=== PATIENT | female | born 1955 | race Caucasian/White ===

== ENCOUNTER → 2016-04-28 | Outpatient (CLI) | payer BC ==
[~2016-04-28] MED LIST: EFFSR150 PO; LISI-461 PO; PRED50TA PO; SIMV20TA2 PO; SNG10 PO
--- NOTE | 2016-04-28 12:08 | Discharge Instructions ---
Discharge Instructions Procedure Procedure Date: Apr 28, 2016. Reason for visit: Left Mass. Discharge Discharge Date: Apr 28, 2016. Discharge Diagnosis: post left breast ultrasound guided core biopsy Instructions Activity Recommendations: Additional Limitations (see below) Return to School/Work: no limitations Recommended Home Diet: No Limitations Provider Instructions: ACTIVITY RECOMMENDATIONS: * No lifting, pushing, pulling or exercising the affected side for three days. RETURN TO SCHOOL/WORK: * You may return to work/school after the procedure, but do not perform any strenuous activities for 24 to 48 hours. MEDICATIONS: * Tylenol (two 325 mg) every four to six hours if needed for mild pain (if not allergic to Tylenol). DIET: * Resume previous diet. SPECIAL CARE INSTRUCTIONS: * Keep biopsy site dry for 24 hours. May shower after 24 hours, but do not soak (bathe) incision. * May remove Tegaderm (plastic patch) tomorrow AFTER showering. * Leave the steri-strips on for one week. Allow the steri-strips to fall off by themselves. If not off after one week, you may remove them. You may place a Bandaid crosswise over the strips, if desired. * Apply ice 10 minutes on and 10 minutes off as needed. * Wear a bra at bedtime to sleep more comfortably for 2-3 days. * Your referring physician should have the results after approximately 5 to 7 business days. * Call for unusual bleeding, fever, drainage, etc or if you have any questions call [phone] during normal business hours or after hours call Dr Nieves, . FOLLOW UP VISIT: Follow-up with Referring Physician as scheduled. Allergies Coded Allergies: Sulfa Drugs (Unverified Allergy, Mild, RASH, 06/01/09) [place]on M[place] Recommendations: Call your doctor if: * Temperature above 101 degrees * Pain not relieved by pain medicine ordered * There is increased drainage or redness from any incision * You have any unanswered questions or concerns. Your Doctors Instructions noted above were prepared by provider Viki Nieves. Patient Signature Section: Patient Instructions Signature Page Joycekurtis Madden Patient (or Guardian) Signature/Date: I have read and understand the instructions given to me by my caregivers. Caregiver/RN/Doctor Signature/Date: The above-named patient and/or guardian has received patient instructions on this date. + Original Patient Signature Page (only) stays with chart. Please make copy for patient.
--- NOTE | 2016-04-28 12:36 | MAMMOGRAPHY REPORT ---
ULTRASOUND GUIDED BIOPSY LEFT BREAST: 04/28/2016 CLINICAL HISTORY: Indeterminate 3 mm solid versus cystic mass in the 11:00 left breast. Patient pre sented for ultrasound-guided core needle biopsy. COMPARISON: Comparison is made to exams dated: 04/14/2016 ultrasound, 04/14/2016 mammogram, 10/12/19 16 ultrasound, 10/01/2015 mammogram, and 10/12/2015 mammogram - [facility]. PATIENT CONSENT: The procedure, risks and benefits were discussed with the patient and informed writ ten consent was obtained. Specific risks to this procedure include: bleeding, infection, puncture of adjacent structure, nontarget biopsy, sampling error and medication reaction. PROCEDURE DESCRIPTION: A time out was performed and the left breast was agreed as the site of biopsy . The skin was prepped and draped in the usual sterile fashion. The 3 mm rounded hypoechoic mass in the 11:00 left breast was chosen as the target for biopsy. Subcutaneous and intraparenchymal 1% buff ered lidocaine was administered as local anesthesia. A skin incision was made. Through the incision , 3 samples were taken with a 14 gauge Achieve biopsy device. The mass was no longer identified aft er the third sample therefore, a metallic marker was placed at the biopsy site. Hemostasis was achie harish after manual compression. The patient tolerated the procedure well and there was no immediate co mplication. The samples were sent to the pathology department in an appropriately labeled container. Postprocedure left CC and MLO 2-D digital and tomosynthesis images were obtained. There is a new ri bbon-shaped metallic biopsy marker and minimal hematoma at the site of the biopsy in the 11 to 12:00 anterior left breast. Pending benign pathology results, the patient should return for bilateral ma mmograms including tomosynthesis images at time of next annual screening in September 2016. IMPRESSION: ULTRASOUND GUIDED BIOPSY Status post ultrasound guided core biopsy of an indeterminate 3 mm mass in the 11:00 left breast, wi th biopsy marker placed at the site. The patient will receive notification of the biopsy results from her referring physician. Viki Nieves M.D. ay/:04/28/2016 12:23:30 Senior Process Engineer: Regina MASON)(Jase), [facility]
--- NOTE | 2016-04-28 12:37 | MAMMOGRAPHY REPORT ---
UNILATERAL LEFT DIGITAL DIAGNOSTIC MAMMOGRAM TOMOSYNTHESIS: 04/28/2016 CLINICAL HISTORY: Status post ultrasound guided core biopsy in the 11:00 left breast of an indetermi hernandez solid versus cystic 3 mm mass. FINDINGS: Please refer to the report from left breast ultrasound guided core biopsy performed at e same time for full detail. IMPRESSION: POST PROCEDURE IMAGING FOR MARKER PLACEMENT Please refer to the report from left breast ultrasound guided core biopsy performed at the same time for full detail. Approximately 10% of breast cancers are not detected with mammography. A negative mammographic repor t should not delay biopsy if a clinically suggestive mass is present. Viki Nieves M.D. ay/:04/28/2016 12:20:31 Market Survey Representative: Regina RODRIGUEZ(R)(M), BI-RADS Code: Post Procedure Imaging For Marker Placement
== END | disposition home or self-care (01) ==
LOC: C.MAMM 11:04
PROVIDERS: ATTEND Obstetrics & Gynecology
DX: N63 Unspecified lump in breast (principal); N60.42 Mammary duct ectasia of left breast

== ENCOUNTER → 2016-10-01 | Outpatient (CLI) | payer BC ==
--- NOTE | 2016-10-01 13:14 | MAMMOGRAPHY REPORT ---
BILATERAL DIGITAL SCREENING MAMMOGRAM TOMOSYNTHESIS WITH CAD: 10/01/2016 TECHNIQUE: Breast tomosynthesis in addition to standard 2D mammography was performed. Current study was also evaluated with a Computer Aided Detection (CAD) system. COMPARISON: Comparison is made to exams dated: 04/28/2016 mammogram, 04/28/2016 ultrasound biopsy, 04/14 ultrasound, 04/14/2016 mammogram, 10/12/2015 ultrasound, and 10/12/2015 mammogram - [facility]. BREAST COMPOSITION: There are scattered areas of fibroglandular density in both breasts. FINDINGS: No suspicious masses, calcifications, or areas of architectural distortion are noted in ei ther breast. There has been no significant interval change compared to prior exams. A biopsy marker clip is again noted in the left 12:00 breast. Bilateral benign-appearing calcifications are not sign ificantly changed. IMPRESSION: ACR BI-RADS CATEGORY 2: BENIGN There is no mammographic evidence of malignancy. A 1 year screening mammogram is recommended. The pa tient will receive written notification of the results. Approximately 10% of breast cancers are not detected with mammography. A negative mammographic report should not delay biopsy if a clinically suggestive mass is present. Maria Altman M.D. /:10/01/2016 12:13:43 Patrol Commander: Marlene MASON)(M), [facility] letter sent: Normal 1/2 BI-RADS Code: ACR BI-RADS Category 2: Benign
== END | disposition home or self-care (01) ==
LOC: C.MAMM 10:56
PROVIDERS: ATTEND Obstetrics & Gynecology
DX: Z12.31 Encounter for screening mammogram for malignant neoplasm of breast (principal)